=== PATIENT | male | born 1965 | race Caucasian/White ===

== ENCOUNTER 2019-06-11 12:54 | Inpatient (IN) | payer OTHER ==
[2019-06-11 13:45] VITALS: BMI 23.8
--- NOTE | 2019-06-11 14:20 | HP ---
COWS - Scale Resting Pulse: 0= NC 80 or Below Sweatin=Flushed/Facial Moisture Restless Observation: 1= Difficult to Sit Still Pupil Size: 0= Normal to Room Light Bone or Joint Aches: 1= Mild Discomfort Runny Nose/ Eye Tearin= None GI Upset > 30mins: 2= Nausea/Diarrhea Tremor Observation: 2= Slight Tremor Visible Yawning Observation: 1= 1-2x During Session Anxiety or Irritability: 2=Irritable/Anxious Goose Flesh Skin: 0=Smooth Skin COWS Score: 11 CIWA Score - Admission Criteria [facility] Guidelines: Admission for Medically Managed Detox: Requires at least one of the followin. CIWA greater than 12 2. Seizures within the past 24 hours 3. Delirium tremens within the past 24 hours 4. Hallucinations within the past 24 hours 5. Acute intervention needed for co occurring medical disorder 6. Acute intervention needed for co occurring psychiatric disorder 7. Severe withdrawal that cannot be handled at a lower level of care (continued vomiting, continued diarrhea, abnormal vital signs) requiring intravenous medication and/or fluids 8. Admission [facility] Chief Complaint: "Heroin detox" Allergies/Adverse Reactions: Allergies Allergy/AdvReac Type Severity Reaction Status Date / Time No Known Allergies Allergy Verified 06/11/19 13:33 History of Present Illness: 53 year old male with a history of R calcaneal surgery (08/28), asthma presents for heroin detox. Tried stopping before without detox and got tremulous with bone pain and nausea/vomiting. 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 - Ebola screening Have you traveled outside of the country in the last 21 days: No Have you had contact with anyone from an Ebola affected area: No Do you have a fever: No - Review of Systems Constitutional: Chills, Fever EENT: reports: No Symptoms Reported Respiratory: reports: No Symptoms reported Cardiac: reports: No Symptoms Reported GI: reports: Diarrhea, Nausea : reports: No Symptoms Reported Musculoskeletal: reports: No Symptoms Reported Integumentary: reports: No Symptoms Reported Neuro: reports: Headache Endocrine: reports: No Symptoms Reported Hematology: reports: No Symptoms Reported Psychiatric: reports: Judgement Intact, Mood/Affect Appropiate, Orientated x3, Depressed Patient History - Smoking Cessation Smoking history: Current every day smoker Initiated information on smoking cessation: Yes 'Breaking Loose' booklet given: 06/11/19 - Substances abused Heroin Substance route: Inhalation Frequency: Daily Amount used: 2bags Age of first use: 53 Date of last use: 06/11/19 Admission Physical Exam [facility] - Vital Signs Vital Signs: Vital Signs - 24 hr 06/11/19 13:32 Temperature 98 F Pulse Rate 72 Respiratory 18 Rate Blood Pressure 120/86 - Physical General Appearance: Yes: No Apparent Distress, Nourished HEENTM: Yes: EOMI, Normocephalic, Normal Voice, Pharynx Normal, Tm's normal Respiratory: Yes: Chest Non-Tender, Normal Breath Sounds, No Respiratory Distress, No Accessory Muscle Use Neck: Yes: No masses,lesions,Nodules Breast: Yes: Within Normal Limits, Axillae without masses, No Discharge, No masses Cardiology: Yes: Regular Rhythm, Regular Rate Abdominal: Yes: Normal Bowel Sounds, Non Tender, Flat, Soft Back: Yes: Within Normal Limits Musculoskeletal: Yes: Within Normal Limits Extremities: Yes: Normal Capillary Refill, Normal Inspection, Normal Range of Motion, Non-Tender, Other (surgical scar noted on posterior aspect of R heel) 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
[2019-06-11] MEDS ORDERED: MENTHOL/PHENOL 1 EACH UD MM PRN (14:38)
[2019-06-11] MEDS ORDERED: ACETAMINOPHEN 325 MG TABLET (FP) PO PRN ×2 (14:38)
[2019-06-11] MEDS ORDERED: MAGNESIUM HYDROX 2400MG/30ML ORAL SUSPENSION 30 ML CUP PO PRN (14:38)
[2019-06-11] MEDS ORDERED: cloNIDine HCL 0.1 MG TABLET PO PRN (14:38)
[2019-06-11] MEDS ORDERED: MAG HYDROX/AL HYDROX/SIMETH 30 ML UNIT-DOSE CUP PO PRN (14:38)
[2019-06-11] MEDS ORDERED: METHOCARBAMOL 500 MG TABLET PO PRN (14:38)
[2019-06-11] MEDS ORDERED: BISMUTH SUBSALICYLATE 262 MG/15 ML BTL PO PRN (14:38)
[2019-06-11] MEDS ORDERED: MAGNESIUM CITRATE 300 ML BOTTLE PO PRN (14:38)
[2019-06-11] MEDS ORDERED: IBUPROFEN 400 MG TABLET (FP) PO PRN (14:38)
--- NOTE | 2019-06-11 14:42 | PN ---
Teaching Attending Note Name of Resident: John Beckford ATTENDING PHYSICIAN STATEMENT I saw and evaluated the patient. I reviewed the resident's note and discussed the case with the resident. I agree with the resident's findings and plan as documented. SUBJECTIVE: 53 year old male with a history of R calcaneal surgery (08/28), asthma presents for heroin detox. 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 OBJECTIVE: wnwd Vital Signs - 24 hr 06/11/19 06/11/19 13:32 17:13 Temperature 98 F 97.3 F L Pulse Rate 72 62 Respiratory 18 16 Rate Blood Pressure 120/86 112/86 ASSESSMENT AND PLAN: Opioid dependence - Methadone detox .
[2019-06-11 17:12] LABS: HEMATOCRIT 42.8 % (35.4-49); HEMOGLOBIN 14.1 GM/dL (11.7-16.9); PLATELET COUNT 256 K/MM3 (134-434); RBC 4.42 M/mm3 (4.00-5.60); RDW 13.5 % (11.9-15.9); WHITE BLOOD COUNT 7.2 K/mm3 (4.0-10.0)
[2019-06-11 17:16] LABS: ALBUMIN 3.8 g/dl (3.4-5.0); BILIRUBIN,TOTAL 0.2 mg/dL (0.2-1); BLOOD UREA NITROGEN 13.6 mg/dL (7-18); CALCIUM 8.8 mg/dL (8.5-10.1); CREATININE 0.9 mg/dL (0.55-1.3); POTASSIUM 3.9 mmol/L (3.5-5.1)
[2019-06-11] MEDS ORDERED: METHADONE HCL 5 MG TABLET (FOR DETOX USE ONLY) PO ONE (19:00)
[2019-06-11] MEDS ORDERED: METHADONE HCL 5 MG TABLET (FOR DETOX USE ONLY) ONE (19:13)
[2019-06-11] MEDS: MELATONIN 5 MG TABLETS PO PRN (22:09)
[2019-06-11] MEDS: THIAMINE HCL 100 MG TABLET (FP) PO SCH (22:09)
[2019-06-12] MEDS ORDERED: METHADONE HCL 10 MG TABLET (FOR DETOX USE ONLY) PO ONE (10:00)
[2019-06-12] MEDS: PRENATAL VITAMINS W/ FOLIC ACID TABLET (FP) PO SCH (10:35)
--- NOTE | 2019-06-12 11:35 | PN ---
[facility] COWS - Scale Resting Pulse: 0= [place] 80 or Below Sweatin= No chills or Flushing Restless Observation: 1= Difficult to Sit Still Pupil Size: 1= Pupils >than Normal Bone or Joint Aches: 1= Mild Discomfort Runny Nose/ Eye Tearin= Nasal Congestion GI Upset > 30mins: 1= Stomach Cramp Tremor Observation of Outstretched Hands: 1= Tremor Dailey, Not Seen Yawning Observation: 1= 1-2x During Session Anxiety or Irritability: 2=Irritable/Anxious Goose Flesh Skin: 0=Smooth Skin COWS Score: 9 S Progress Note (SOAP) Subjective: alert,irritable,anxious interrupted sleep,tremor,pain in the body, Objective: 06/12/19 11:33 Vital Signs Temperature 97.9 F 06/12/19 09:15 Pulse Rate 74 06/12/19 09:15 Respiratory Rate 18 06/12/19 09:15 Blood Pressure 119/78 06/12/19 09:15 O2 Sat by Pulse Oximetry (%) Laboratory Last Values WBC 7.2 K/mm3 (4.0-10.0) 06/11/19 14:30 RBC 4.42 M/mm3 (4.00-5.60) 06/11/19 14:30 Hgb 14.1 GM/dL (11.7-16.9) 06/11/19 14:30 Hct 42.8 % (35.4-49) 06/11/19 14:30 MCV 97.0 fl (80-96) H 06/11/19 14:30 MCH 32.0 pg (25.7-33.7) 06/11/19 14:30 MCHC 33.0 g/dl (32.0-35.9) 06/11/19 14:30 RDW 13.5 % (11.9-15.9) 06/11/19 14:30 Plt Count 256 K/MM3 (134-434) 06/11/19 14:30 MPV 8.0 fl (7.5-11.1) 06/11/19 14:30 Sodium 142 mmol/L (136-145) 06/11/19 14:30 Potassium 3.9 mmol/L (3.5-5.1) 06/11/19 14:30 Chloride 107 mmol/L (98-107) 06/11/19 14:30 Carbon Dioxide 29 mmol/L (21-32) 06/11/19 14:30 Anion Gap 6 MMOL/L (8-16) L 06/11/19 14:30 BUN 13.6 mg/dL (7-18) 06/11/19 14:30 Creatinine 0.9 mg/dL (0.55-1.3) 06/11/19 14:30 Est GFR (CKD-EPI)AfAm 112.62 06/11/19 14:30 Est GFR (CKD-EPI)NonAf 97.17 06/11/19 14:30 Random Glucose 92 mg/dL (74-106) 06/11/19 14:30 Calcium 8.8 mg/dL (8.5-10.1) 06/11/19 14:30 Total Bilirubin 0.2 mg/dL (0.2-1) 06/11/19 14:30 AST 12 U/L (15-37) L 06/11/19 14:30 ALT 19 U/L (13-61) 06/11/19 14:30 Alkaline Phosphatase 112 U/L (45-117) 06/11/19 14:30 Total Protein 7.0 g/dl (6.4-8.2) 06/11/19 14:30 Albumin 3.8 g/dl (3.4-5.0) 06/11/19 14:30 RPR Titer Nonreactive (NONREACTIVE) 06/11/19 14:30 06/12/19 11:34 hiv pending Assessment: 06/12/19 11:34 withdrawal symptom Plan: continue detox methadone regimen
[2019-06-12] MEDS: hydrOXYzine PAMOATE 25 MG CAPSULE (FP) PO PRN ×2 (15:34→21:29)
[2019-06-12] MEDS: MELATONIN 5 MG TABLETS PO PRN (21:29)
[2019-06-12] MEDS: THIAMINE HCL 100 MG TABLET (FP) PO SCH (21:29)
--- NOTE | 2019-06-13 08:35 | PN ---
[facility] COWS - Scale Resting Pulse: 0= [place] 80 or Below Sweatin= No chills or Flushing Restless Observation: 1= Difficult to Sit Still Pupil Size: 0= Normal to Room Light Bone or Joint Aches: 0= None Runny Nose/ Eye Tearin= Constantly Teary/Runny GI Upset > 30mins: 0= None Tremor Observation of Outstretched Hands: 0= None Yawning Observation: 0= None Anxiety or Irritability: 1=Feels Anxious/Irritable Goose Flesh Skin: 0=Smooth Skin COWS Score: 6 B[facility] Progress Note (SOAP) Subjective: feeling better. Objective: 06/13/19 08:34 Vital Signs Temperature 98.1 F 06/13/19 06:56 Pulse Rate 80 06/13/19 06:56 Respiratory Rate 18 06/13/19 06:56 Blood Pressure 107/70 06/13/19 06:56 O2 Sat by Pulse Oximetry (%) [id number] ambulating no acute distress Assessment: 06/13/19 08:34 mild to no withdrawals Plan: continue and complete detox today d/c today
--- NOTE | 2019-06-13 08:38 | DS ---
[facility] Detox Discharge Summary Admission Date: 06/11/19 Discharge Date: 06/13/19 - History Present History: Opioid Dependence - Physical Exam Results Vital Signs: Vital Signs Temperature 98.1 F 06/13/19 06:56 Pulse Rate 80 06/13/19 06:56 Respiratory Rate 18 06/13/19 06:56 Blood Pressure 107/70 06/13/19 06:56 O2 Sat by Pulse Oximetry (%) - Treatment Hospital Course: Detox Protocol Followed, Detoxed Safely, Responded well, Discharged Condition Good, Rehab Referral Accepted Patient has Accepted a Rehab Referral to: declined rehab; referral provided - Medication Discharge Medications: Ambulatory Orders Albuterol Sulfate Inhaler - [Ventolin Hfa Inhaler -] 1 - 2 inh PO Q4H PRN - Diagnosis (1) Opioid dependence, uncomplicated Current Visit: Yes Status: Chronic - AMA Did Patient Leave Against Medical Advice: No
[2019-06-13] MEDS: PRENATAL VITAMINS W/ FOLIC ACID TABLET (FP) PO SCH (09:22)
[2019-06-13 09:31] VITALS: BP 130/78; PULSE 77; TEMP 96.3
[2019-06-13] MEDS ORDERED: METHADONE HCL 5 MG TABLET (FOR DETOX USE ONLY) PO ONE (10:00)
== END 2019-06-13 09:30 | disposition home or self-care (01) | DRG 773 ==
LOC: YASAS 12:54 → Y6N 15:13
PROVIDERS: ADMIT Surgery; ATTEND Surgery
PROC: HZ2ZZZZ Detoxification Services for Substance Abuse Treatment (ICD-10-PCS; principal; 2019-06-11)
DX: F11.23 Opioid dependence with withdrawal (principal); F17.210 Nicotine dependence, cigarettes, uncomplicated
CPT/HCPCS: 36415; 80053; 85027; 86593; 87389